=== PATIENT | male | born 1985 | race Caucasian/White ===

== ENCOUNTER 2020-05-28 03:29 | Emergency (ER) | payer MEDICAID, OTHER ==
--- NOTE | 2020-05-28 04:32 | EDM.PDOC ---
ED HPI GENERAL MEDICAL PROBLEM - General Chief Complaint: General Stated Complaint: fall, right lower back pain Time Seen by Provider: 05/28/20 04:08 Source of Information: Reports: Patient History Limitations: Reports: No Limitations - History of Present Illness INITIAL COMMENTS - FREE TEXT/NARRATIVE: Patient presents with right low back pain after a fall at work about 4 hours ago. 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 He denies hitting his head, LOC, blurry vision, neck pain or injury to upper extremities. He can walk without pain. 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 Right Lower Back Pain Score (Numeric/FACES): 7 - Related Data Allergies Allergy/AdvReac Type Severity Reaction Status Date / Time amoxicillin Allergy Airway Verified 05/28/20 03:47 Tightness Past Medical History Cardiovascular History: Reports: Hypertension - Infectious Disease History Infectious Disease History: Reports: Chicken Pox, Novel Coronavirus Other Infectious Disease History: Covid in October 2019 - Past Surgical History HEENT Surgical History: Reports: Tonsillectomy GI Surgical History: Reports: Cholecystectomy Social & Family History - Tobacco Use Tobacco Use Status *Q: Never Tobacco User - Caffeine Use Caffeine Use: Reports: Soda - Recreational Drug Use Recreational Drug Use: No ED ROS GENERAL - Review of Systems Review Of Systems: See Below Constitutional: Denies: Fever, Chills, Malaise, Weakness HEENT: Denies: Ear Pain, Throat Pain, Vision Change Respiratory: Denies: Shortness of Breath, Cough Cardiovascular: Denies: Chest Pain, Lightheadedness, Syncope GI/Abdominal: Denies: Abdominal Pain, Vomiting : Reports: No Symptoms Musculoskeletal: Reports: Back Pain. Denies: Neck Pain, Shoulder Pain, Arm Pain, Hand Pain, Leg Pain, Foot Pain, Joint Pain Skin: Denies: Cyanosis, Jaundice, Mottled, Pallor Neurological: Denies: Confusion, Dizziness, Headache, Numbness, Seizure, Syncope, Tingling, Trouble Speaking, Difficulty Walking Psychiatric: Denies: Agitation, Anxiety ED EXAM, GENERAL - Physical Exam Exam: See Below Exam Limited By: No Limitations General Appearance: Alert, WD/WN, No Apparent Distress Eye Exam: Bilateral Eye: EOMI, Normal Inspection, PERRL Ears: Normal External Exam, Hearing Grossly Normal Nose: Normal Inspection, No Blood Throat/Mouth: Normal Inspection, Normal Lips, Normal Voice, No Airway Compromise Head: Atraumatic, Normocephalic Neck: Normal Inspection, Full Range of Motion Respiratory/Chest: No Respiratory Distress, Lungs Clear, Normal Breath Sounds Cardiovascular: Regular Rate, Rhythm, No Murmur GI/Abdominal: Soft, Non-Tender Back Exam: Full Range of Motion, Other (Tender to palpation posterolateral soft tissues of right low back and hip region. No bony tenderness, ecchymosis evident. No appreciable spasm currently.). No: Vertebral Tenderness Extremities: Normal Inspection, Normal Range of Motion Neurological: Alert, Oriented, Normal Cognition, No Motor/Sensory Deficits Psychiatric: Normal Affect, Normal Mood Skin Exam: Warm, Dry, Intact, Normal Color, No Rash Course - Vital Signs Last Recorded V/S: Last Vital Signs Temp 97.5 F 05/28/20 03:33 Pulse 86 05/28/20 03:33 Resp 28 H 05/28/20 03:33 BP 151/97 H 05/28/20 03:33 Pulse Ox 94 L 05/28/20 03:33 - Re-Assessments/Exams Free Text/Narrative Re-Assessment/Exam: 05/28/20 04:47 He took Ibuprofen 600 mg at 0100 and doesn't think he needs anything else until that wears off in a few hours. He is scheduled to work again tonight which he doesn't think he can do. He is okay with trying to work the next day without restrictions. I wrote a work note. Discussed findings and treatment plan with patient. Discharged to home in stable condition. Departure - Departure Time of Disposition: 04:25 Disposition: Home, Self-Care 01 Condition: Good Clinical Impression: Low back pain Qualifiers: Chronicity: acute Back pain laterality: right Sciatica presence: without sciatica Qualified Code(s): M54.5 - Low back pain - Discharge Information Instructions: Acute Back Pain, Adult Referrals: Kayla Dash MD [Primary Care Provider] - Additional Instructions: Drink 8 cups of water daily. You can use Ibuprofen 600 mg 3 x/day or Naproxen 500 mg twice daily for pain control. You can use Flexeril as directed if muscle spasm develops. Avoid driving for 8 hours after use. Follow up with your PCP if worsening or not improving. Sepsis Event Note (ED) - Evaluation Sepsis Screening Result: No Definite Risk - Focused Exam Vital Signs: Vital Signs Temp Pulse Resp BP Pulse Ox 05/28/20 03:33 97.5 F 86 28 H 151/97 H 94 L
[2020-05-28] MEDS ORDERED: Sodium Chloride 0.9% 1,000 ML ONE (05:00)
== END 2020-05-28 04:44 | disposition home or self-care (01) ==
LOC: KA.ED 03:29
DX: M54.5 Low back pain (principal); I10 Essential (primary) hypertension; Z88.1 Allergy status to other antibiotic agents; Z86.19 Personal history of other infectious and parasitic diseases
CPT/HCPCS: 99283; 99284